=== PATIENT | female | born 1940 | race Caucasian/White ===

== ENCOUNTER 2017-03-06 10:51 | Inpatient (IN) | payer OTHER ==
[~2017-03-06] VITALS: Ht 162.6 cm; Wt 46.5 kg
[~2017-03-06 10:51] MED LIST: PRED50TA PO
[2017-03-06 13:58] VITALS: BP 91/46
[2017-03-06] MEDS ORDERED: acetaminophen 325mg tablet PO PRN ×2 (16:00)
[2017-03-06] MEDS ORDERED: magnesium hydroxide 30ml (MOM) UD suspension PO PRN (16:00)
[2017-03-06] MEDS ORDERED: ondansetron/PF 4mg/2ml inj IV PRN (16:00)
[2017-03-06] MEDS: fluconazole 100mg tablet PO SCH (16:00)
[2017-03-06 16:49] LABS: BASOPHILS % (AUTO) 0.1 % (0-1); EOSINOPHILS # (AUTO) 0.2 X10'3 (0-0.9); EOSINOPHILS % (AUTO) 1.9 % (0-6); LYMPHOCYTES # (AUTO) 0.5 X10'3 (1.1-4.8); LYMPHOCYTES % (AUTO) 4.3 % (21-51); MEAN CORPUSCULAR HEMOGLOBIN 30.3 PG (27.0-31.0); MEAN CORPUSCULAR HGB CONC 34.2 % (33.0-36.5); MEAN CORPUSCULAR VOLUME 88.8 FL (78-98); MEAN PLATELET VOLUME 7.3 FL (7.4-10.4); MONOCYTES # (AUTO) 0.3 X10'3 (0-0.9); MONOCYTES % (AUTO) 2.4 % (2-12); NEUTROPHILS # (AUTO) 11.6 X10'3 (1.8-7.7); NEUTROPHILS % (AUTO) 91.3 % (42-75); PLATELET COUNT 229 X10'3 (140-440); RED CELL DISTRIBUTION WIDTH 15.1 % (11.5-14.5); WHITE BLOOD COUNT 12.7 X10'3 (4.5-11.0)
[2017-03-06 16:57] LABS: HEMATOCRIT 16.9 % (35.0-45.0); HEMOGLOBIN 5.8 g/dl (12.0-16.0)
[2017-03-06 17:00] LABS: INR 1.1 INR; PARTIAL THROMBOPLASTIN TIME 27 SECONDS (22-32)
[2017-03-06] MEDS ORDERED: PANT-47 PO (17:07)
[2017-03-06] MEDS ORDERED: PIPE3.374 IV (17:07)
[2017-03-06] MEDS ORDERED: [UNRECOGNIZED DRUG - CODE] (17:07)
[2017-03-06] MEDS ORDERED: FLUC100T PO (17:09)
[2017-03-06] MEDS ORDERED: VANC1VIA21 IV (17:09)
[2017-03-06 17:11] LABS: ALANINE AMINOTRANSFERASE 16 U/L (12-78); ALBUMIN 1.2 G/DL (3.4-5.0); ALBUMIN/GLOBULIN RATIO 0.3 (1.1-1.5); ALKALINE PHOSPHATASE 124 IU/L (46-116); ANION GAP 5 (8-16); ASPARTATE AMINO TRANSFERASE 20 U/L (10-37); BILIRUBIN,TOTAL 0.3 MG/DL (0.1-1.0); BLOOD UREA NITROGEN 46 MG/DL (7-18); BUN/CREATININE RATIO 18.6 (6.6-38.0); CALCIUM 7.8 MG/DL (8.5-10.1); CHLORIDE 101 MMOL/L (99-107); CREATININE 2.47 MG/DL (0.40-0.90); GLUCOSE 75 MG/DL (70-104); MAGNESIUM 1.4 MG/DL (1.5-2.4); PHOSPHORUS 3.2 MG/DL (2.3-4.5); POTASSIUM 4.9 MMOL/L (3.5-5.1); SODIUM 135 MMOL/L (135-145); TOTAL CARBON DIOXIDE 28.7 MMOL/L (24-32); eGFR 19 ML/MIN
[2017-03-06 17:25] LABS: TOTAL CELLS COUNTED 100; TOXIC VACUOLATION 1+
[2017-03-06 17:26] LABS: ANISOCYTOSIS FEW; PLATELET ESTIMATE NORMAL; POLYCHROMASIA 1+; TOXIC GRANULATION 3+
[2017-03-06 19:00] VITALS: BP 102/54
[2017-03-06] MEDS: pantoprazole 40mg Tablet.DR PO SCH (20:00)
[2017-03-06 23:32] VITALS: BP 75/53
[2017-03-06 23:47] VITALS: BP 76/43
[2017-03-07] VITALS (24 sets, daily range): BP systolic 82–120; BP diastolic 40–64
[2017-03-07] MEDS: pantoprazole 40mg Tablet.DR PO SCH ×2 (02:22→22:43)
[2017-03-07] MEDS ORDERED: pantoprazole 40mg Tablet.DR PO SCH (07:30)
[2017-03-07] MEDS: fluconazole 100mg tablet PO SCH ×2 (08:00→14:43)
[2017-03-07 09:58] LABS: BASOPHILS % (AUTO) 0.3 % (0-1); EOSINOPHILS % (AUTO) 0.2 % (0-6); HEMOGLOBIN 9.6 g/dl (12.0-16.0); LYMPHOCYTES # (AUTO) 0.4 X10'3 (1.1-4.8); LYMPHOCYTES % (AUTO) 2.6 % (21-51); MEAN CORPUSCULAR HGB CONC 34.3 % (33.0-36.5); MEAN CORPUSCULAR VOLUME 87.5 FL (78-98); MEAN PLATELET VOLUME 7.4 FL (7.4-10.4); MONOCYTES # (AUTO) 0.3 X10'3 (0-0.9); MONOCYTES % (AUTO) 2.2 % (2-12); NEUTROPHILS # (AUTO) 13.4 X10'3 (1.8-7.7); NEUTROPHILS % (AUTO) 94.7 % (42-75); PLATELET COUNT 208 X10'3 (140-440); RED CELL DISTRIBUTION WIDTH 13.6 % (11.5-14.5); WHITE BLOOD COUNT 14.1 X10'3 (4.5-11.0)
[2017-03-07 10:03] LABS: INR 1.1 INR; PARTIAL THROMBOPLASTIN TIME 29 SECONDS (22-32); PROTHROMBIN TIME 11.1 SECONDS (9.0-12.0)
[2017-03-07 10:23] LABS: ALANINE AMINOTRANSFERASE 19 U/L (12-78); ALBUMIN 1.3 G/DL (3.4-5.0); ALBUMIN/GLOBULIN RATIO 0.3 (1.1-1.5); ALKALINE PHOSPHATASE 132 IU/L (46-116); ANION GAP 5 (8-16); ASPARTATE AMINO TRANSFERASE 23 U/L (10-37); BILIRUBIN,TOTAL 0.7 MG/DL (0.1-1.0); BLOOD UREA NITROGEN 35 MG/DL (7-18); BUN/CREATININE RATIO 15.3 (6.6-38.0); CHLORIDE 100 MMOL/L (99-107); CREATININE 2.29 MG/DL (0.40-0.90); GLUCOSE 135 MG/DL (70-104); MAGNESIUM 1.3 MG/DL (1.5-2.4); PHOSPHORUS 3.5 MG/DL (2.3-4.5); POTASSIUM 4.3 MMOL/L (3.5-5.1); SODIUM 134 MMOL/L (135-145); TOTAL PROTEIN 5.4 G/DL (6.4-8.2); eGFR 21 ML/MIN
[2017-03-07] MEDS ORDERED: LIDOcaine 1% 30ml vial 0 ML ONE (10:35)
[2017-03-07] MEDS ORDERED: heparin sodium, porcine/PF 100unit/ml 5ML syringe ONE (10:35)
[2017-03-07] MEDS ORDERED: povidone-iodine 10% topical ointment 28.4gm TP ONE (10:35)
[2017-03-07] MEDS ORDERED: ringers solution, lacted 1,000 ML IV SCH (10:40)
[2017-03-07] MEDS ORDERED: ondansetron/PF 4mg/2ml inj IV PRN (10:40)
[2017-03-07] MEDS ORDERED: fentaNYL/PF 50MCG/1 ML 2ML syringe ONE ×2 (10:58→11:16)
[2017-03-07] MEDS ORDERED: midazolam 2 mg/2 ml injection ONE (10:58)
[2017-03-07] MEDS ORDERED: ketamine 10mg/ml 20ml inj ONE (10:58)
[2017-03-07] MEDS ORDERED: ePHEDrine 50MG/ML INJ. ONE (11:33)
[2017-03-07] MEDS ORDERED: ePHEDrine 50MG/ML INJ. IV ONE (11:35)
[2017-03-07] MEDS ORDERED: propofol inj 20 ML IV ONE (11:49)
[2017-03-07] MEDS ORDERED: LIDOcaine 1%/PF (10mg/ml) 5ml vial ONE (11:49)
[2017-03-07 12:27] LABS: PLATELET ESTIMATE NORMAL; TOTAL CELLS COUNTED 100
[2017-03-07 12:28] LABS: POLYCHROMASIA FEW; TOXIC GRANULATION 3+; TOXIC VACUOLATION 1+
[2017-03-07 12:29] LABS: ANISOCYTOSIS FEW
[2017-03-07] MEDS ORDERED: magnesium 2GM in 50ml NS 50 ML IV PRN (13:40)
[2017-03-07] MEDS ORDERED: magnesium Cl slow-release 64mg tablet PO PRN (13:40)
[2017-03-07] MEDS ORDERED: magnesium 4gm in 100ml NS 100 ML IV PRN (13:40)
[2017-03-08] VITALS (15 sets, daily range): BP systolic 96–137; BP diastolic 55–70
[2017-03-08 06:09] LABS: PARTIAL THROMBOPLASTIN TIME 28 SECONDS (22-32); PROTHROMBIN TIME 10.7 SECONDS (9.0-12.0)
[2017-03-08 06:10] LABS: BASOPHILS % (AUTO) 0.1 % (0-1); EOSINOPHILS # (AUTO) 0.1 X10'3 (0-0.9); EOSINOPHILS % (AUTO) 1.3 % (0-6); HEMATOCRIT 29.2 % (35.0-45.0); HEMOGLOBIN 9.7 g/dl (12.0-16.0); LYMPHOCYTES # (AUTO) 0.3 X10'3 (1.1-4.8); LYMPHOCYTES % (AUTO) 3.4 % (21-51); MEAN CORPUSCULAR HEMOGLOBIN 29.4 PG (27.0-31.0); MEAN CORPUSCULAR HGB CONC 33.3 % (33.0-36.5); MEAN CORPUSCULAR VOLUME 88.2 FL (78-98); MEAN PLATELET VOLUME 7.3 FL (7.4-10.4); MONOCYTES # (AUTO) 0.2 X10'3 (0-0.9); MONOCYTES % (AUTO) 2.1 % (2-12); NEUTROPHILS # (AUTO) 9.1 X10'3 (1.8-7.7); NEUTROPHILS % (AUTO) 93.1 % (42-75); PLATELET COUNT 225 X10'3 (140-440); RED BLOOD COUNT 3.31 X10'6 (4.20-5.60); WHITE BLOOD COUNT 9.8 X10'3 (4.5-11.0)
[2017-03-08 07:02] LABS: ALANINE AMINOTRANSFERASE 16 U/L (12-78); ALBUMIN 1.2 G/DL (3.4-5.0); ALBUMIN/GLOBULIN RATIO 0.3 (1.1-1.5); ALKALINE PHOSPHATASE 137 IU/L (46-116); ANION GAP 8 (8-16); ASPARTATE AMINO TRANSFERASE 5 U/L (10-37); BILIRUBIN,TOTAL 0.4 MG/DL (0.1-1.0); BLOOD UREA NITROGEN 36 MG/DL (7-18); BUN/CREATININE RATIO 14.8 (6.6-38.0); CALCIUM 8.5 MG/DL (8.5-10.1); CHLORIDE 98 MMOL/L (99-107); CREATININE 2.43 MG/DL (0.40-0.90); GLUCOSE 208 MG/DL (70-104); MAGNESIUM 3.2 MG/DL (1.5-2.4); PHOSPHORUS 3.8 MG/DL (2.3-4.5); POTASSIUM 4.7 MMOL/L (3.5-5.1); SODIUM 134 MMOL/L (135-145); TOTAL CARBON DIOXIDE 28.4 MMOL/L (24-32); TOTAL PROTEIN 5.1 G/DL (6.4-8.2); eGFR 19 ML/MIN
[2017-03-08] MEDS: pantoprazole 40mg Tablet.DR PO SCH (07:41)
[2017-03-08] MEDS: fluconazole 100mg tablet PO SCH (07:42)
[2017-03-08] MEDS ORDERED: midazolam 2 mg/2 ml injection IV PRN (08:15)
[2017-03-08] MEDS ORDERED: heparin 1,000 units/ml 10ml inj ICATH ONE (08:15)
[2017-03-08] MEDS ORDERED: LIDOcaine 1%/PF (10mg/ml) 5ml vial SQ ONE (08:15)
[2017-03-08] MEDS ORDERED: fentaNYL/PF 50MCG/1 ML 2ML syringe IV PRN (08:15)
[2017-03-08] MEDS ORDERED: heparin 1,000unit/ml 10ml vial 10 ML ONE (08:26)
[2017-03-08] MEDS ORDERED: midazolam 2 mg/2 ml injection ONE (08:27)
[2017-03-08] MEDS ORDERED: LIDOcaine 1%/PF (10mg/ml) 5ml vial ONE (08:27)
[2017-03-08] MEDS ORDERED: fentaNYL/PF 50MCG/1 ML 2ML syringe ONE (08:28)
[2017-03-08] MEDS ORDERED: normal saline 1000ml 100 ML IV PRN (09:47)
[2017-03-08] MEDS ORDERED: albumin (human) 25% 100ml IV 100 ML IV PRN (09:50)
[2017-03-08 09:52] LABS: OCCULT BLOOD STOOL NEGATIVE (Neg)
[2017-03-08] MEDS ORDERED: heparin 1,000 units/ml 10ml inj HE ONE ×2 (09:55)
[2017-03-08] MEDS ORDERED: FLUC100T9 PO (15:39)
== END 2017-03-08 16:40 | disposition home or self-care (01) | DRG 919 ==
LOC: MED 3N 14:02
PROVIDERS: ADMIT Internal Medicine Critical Care Medicine; ATTEND Internal Medicine Critical Care Medicine
PROC: 3E1M39Z Irrigation of Peritoneal Cavity using Dialysate, Percutaneous Approach (ICD-10-PCS; 2017-03-06)
PROC: 30233N1 Transfusion of Nonautologous Red Blood Cells into Peripheral Vein, Percutaneous Approach (ICD-10-PCS; 2017-03-07)
PROC: 3E1M39Z Irrigation of Peritoneal Cavity using Dialysate, Percutaneous Approach (ICD-10-PCS; 2017-03-07)
PROC: 0WPGX3Z Removal of Infusion Device from Peritoneal Cavity, External Approach (ICD-10-PCS; principal; 2017-03-07 10:53)
PROC: 5A1D70Z Performance of Urinary Filtration, Intermittent, Less than 6 Hours Per Day (ICD-10-PCS; 2017-03-08)
PROC: 0JH63XZ Insertion of Tunneled Vascular Access Device into Chest Subcutaneous Tissue and Fascia, Percutaneous Approach (ICD-10-PCS; 2017-03-08)
PROC: 02HV33Z Insertion of Infusion Device into Superior Vena Cava, Percutaneous Approach (ICD-10-PCS; 2017-03-08)
PROC: B548ZZA Ultrasonography of Superior Vena Cava, Guidance (ICD-10-PCS; 2017-03-08)
DX: T85.71XA Infection and inflammatory reaction due to peritoneal dialysis catheter, initial encounter (principal); K65.8 Other peritonitis; B37.89 Other sites of candidiasis; E46 Unspecified protein-calorie malnutrition; N18.6 End stage renal disease; D63.8 Anemia in other chronic diseases classified elsewhere; Z68.1 Body mass index [BMI] 19.9 or less, adult; Y82.8 Other medical devices associated with adverse incidents; Z99.2 Dependence on renal dialysis; Y92.89 Other specified places as the place of occurrence of the external cause
CPT/HCPCS: 36415; 36558; 71045; 76937; 77001; 80053; 82272; 83605; 83735; 83880; 84100; 84145; 84443; 85025; 85610; 85730; 86885; 86900; 86901; 86920; 87040; 87070; 93005; 99152; 99153; A4353; A4620; A6212; A6213; C1750; C1894; G0257; J1642; J1644; J2001; J2250; J2405; J2704; J3010; J3475; J3490; J7030; J7120; P9016

== ENCOUNTER 2017-05-10 10:57 | Emergency (ER) | payer OTHER ==
[~2017-05-10] VITALS: Ht 157.5 cm; Wt 44.1 kg
[~2017-05-10 10:57] MED LIST changes: +FLUC100T PO; +FLUC100T9 PO; +PANT-47 PO; -PRED50TA PO; +[UNRECOGNIZED DRUG - CODE]
[2017-05-10 11:42] LABS: BASOPHILS % (AUTO) 0 % (0-1); EOSINOPHILS # (AUTO) 0.1 X10'3 (0-0.9); EOSINOPHILS % (AUTO) 0.8 % (0-6); HEMATOCRIT 36.5 % (35.0-45.0); HEMOGLOBIN 12.1 g/dl (12.0-16.0); LYMPHOCYTES # (AUTO) 0.5 X10'3 (1.1-4.8); LYMPHOCYTES % (AUTO) 4.9 % (21-51); MEAN CORPUSCULAR HEMOGLOBIN 29.3 PG (27.0-31.0); MEAN CORPUSCULAR HGB CONC 33.2 % (33.0-36.5); MEAN CORPUSCULAR VOLUME 88.3 FL (78-98); MEAN PLATELET VOLUME 8.2 FL (7.4-10.4); MONOCYTES # (AUTO) 0.6 X10'3 (0-0.9); MONOCYTES % (AUTO) 5.9 % (2-12); NEUTROPHILS # (AUTO) 9.6 X10'3 (1.8-7.7); NEUTROPHILS % (AUTO) 88.4 % (42-75); PLATELET COUNT 167 X10'3 (140-440); RED BLOOD COUNT 4.13 X10'6 (4.20-5.60); RED CELL DISTRIBUTION WIDTH 15.2 % (11.5-14.5); WHITE BLOOD COUNT 10.8 X10'3 (4.5-11.0)
[2017-05-10 11:52] LABS: PARTIAL THROMBOPLASTIN TIME 25 SECONDS (22-32); PROTHROMBIN TIME 10.1 SECONDS (9.0-12.0)
[2017-05-10 11:57] LABS: ALANINE AMINOTRANSFERASE 29 U/L (12-78); ALBUMIN 2.6 G/DL (3.4-5.0); ALBUMIN/GLOBULIN RATIO 0.6 (1.1-1.5); ALKALINE PHOSPHATASE 146 IU/L (46-116); ANION GAP 7 (8-16); ASPARTATE AMINO TRANSFERASE 20 U/L (10-37); BILIRUBIN,TOTAL 0.2 MG/DL (0.1-1.0); BLOOD UREA NITROGEN 17 MG/DL (7-18); CALCIUM 8.3 MG/DL (8.5-10.1); CHLORIDE 99 MMOL/L (99-107); CREATININE 1.55 MG/DL (0.40-0.90); GLUCOSE 267 MG/DL (70-104); POTASSIUM 4.8 MMOL/L (3.5-5.1); SODIUM 136 MMOL/L (135-145); TOTAL CARBON DIOXIDE 30.3 MMOL/L (24-32); TOTAL PROTEIN 7.3 G/DL (6.4-8.2); eGFR 33 ML/MIN
[2017-05-10 13:51] LABS: CLARITY,URINE CLEAR (Clear); COLOR,URINE YELLOW (Yellow); GLUCOSE, URINE >=1000 mg/dl (Neg); KETONES,URINE TRACE mg/dl (Neg); LEUKOCYTE ESTERASE ,URINE NEGATIVE (Neg); NITRITES, URINE NEGATIVE (Neg); OCCULT BLOOD,URINE TRACE-LYSED (Neg); PROTEIN,URINE >=300 mg/dl (Neg); UROBILINOGEN,URINE 0.2 E.U/dL (0.2-1.0)
[2017-05-10 13:53] LABS: UA COLLECTION TYPE STRAIGHT CATH
[2017-05-10 13:57] LABS: SQUAMOUS EPITHELIAL CELL,UR FEW /LPF (FEW)
[2017-05-10 13:58] LABS: BACTERIA,URINE 1+ /HPF (Neg); HYALINE CASTS 0-3 /LPF (NEGATIVE); MUCUS STRANDS FEW /LPF (Neg); WBC,URINE 0-4 /HPF (0-4)
[2017-05-10] MEDS ORDERED: PRED20TA PO (14:07)
[2017-05-10 14:30] VITALS: BP 119/51
== END 2017-05-10 14:32 | disposition home or self-care (01) ==
LOC: ER 10:57
DX: J44.1 Chronic obstructive pulmonary disease with (acute) exacerbation (principal); E11.22 Type 2 diabetes mellitus with diabetic chronic kidney disease; N18.6 End stage renal disease; Z99.2 Dependence on renal dialysis; Z98.890 Other specified postprocedural states; Z79.899 Other long term (current) drug therapy
CPT/HCPCS: 36415; 71045; 80053; 81001; 83605; 84484; 85025; 85610; 85730; 87040; 93005; 99285

== ENCOUNTER 2017-06-25 18:00 | Inpatient (IN) | payer MEDICARE, OTHER ==
[~2017-06-25] VITALS: Ht 162.6 cm; Wt 45.5 kg
[~2017-06-25 18:00] MED LIST changes: +AMLO5TAB16 PO; +DILT120C88 PO; -FLUC100T PO; -FLUC100T9 PO; +HYDR-569 PO; +INSU100V9 SQ; +LISI40TA4 PO; +LORA0.5T PO; +METO10TA3 PO; +ONDA4TAB11 PO; +PRAV40TA3 PO; -[UNRECOGNIZED DRUG - CODE]
[2017-06-25 23:00] VITALS: BP 127/52
[2017-06-25] MEDS ORDERED: PRED20TA PO (23:13)
[2017-06-25] MEDS ORDERED: magnesium hydroxide 30ml (MOM) UD suspension PO PRN (23:25)
[2017-06-25] MEDS ORDERED: ondansetron/PF 4mg/2ml inj IV PRN (23:25)
[2017-06-25] MEDS ORDERED: acetaminophen 325mg tablet PO PRN ×2 (23:25)
[2017-06-25] MEDS ORDERED: mag hydrox/Alum hydrox/simeth 30ml oral suspension PO PRN (23:25)
[2017-06-25] MEDS ORDERED: MESSAGE TO PHARMACY PO ONE (23:30)
[2017-06-25] MEDS ORDERED: dextrose ORAL solution 15 GM/59 ML bottle PO PRN ×2 (23:30)
[2017-06-25] MEDS ORDERED: dextrose 50%-water 50ml dispensing syringe IV PRN ×2 (23:30)
[2017-06-25] MEDS ORDERED: glucagon, human recombinant 1mg kit SUBCUT PRN (23:30)
[2017-06-26] VITALS (7 sets, daily range): BP systolic 123–148; BP diastolic 52–73
[2017-06-26] MEDS ORDERED: HYDROcodone/acetaminophen 10/325mg tab PO PRN (03:30)
[2017-06-26 05:08] LABS: BASOPHILS % (AUTO) 0.1 % (0-1); EOSINOPHILS % (AUTO) 0 % (0-6); HEMOGLOBIN 12.8 g/dl (12.0-16.0); LYMPHOCYTES # (AUTO) 0.3 X10'3 (1.1-4.8); LYMPHOCYTES % (AUTO) 6.1 % (21-51); MEAN CORPUSCULAR HGB CONC 32.9 % (33.0-36.5); MEAN CORPUSCULAR VOLUME 94.3 FL (78-98); MEAN PLATELET VOLUME 9.6 FL (7.4-10.4); MONOCYTES % (AUTO) 0.8 % (2-12); NEUTROPHILS # (AUTO) 4.2 X10'3 (1.8-7.7); PLATELET COUNT 121 X10'3 (140-440); RED BLOOD COUNT 4.13 X10'6 (4.20-5.60); RED CELL DISTRIBUTION WIDTH 19.4 % (11.5-14.5); WHITE BLOOD COUNT 4.5 X10'3 (4.5-11.0)
[2017-06-26 05:17] LABS: ALBUMIN 2.3 G/DL (3.4-5.0); ANION GAP 5 (8-16); BLOOD UREA NITROGEN 55 MG/DL (7-18); BUN/CREATININE RATIO 16.8 (6.6-38.0); CALCIUM 7.9 MG/DL (8.5-10.1); CHLORIDE 96 MMOL/L (99-107); CREATININE 3.28 MG/DL (0.40-0.90); GLUCOSE 322 MG/DL (70-104); POTASSIUM 5.4 MMOL/L (3.5-5.1); SODIUM 133 MMOL/L (135-145); TOTAL CARBON DIOXIDE 31.8 MMOL/L (24-32); eGFR 14 ML/MIN
[2017-06-26 05:30] LABS: GIANT PLATELET FEW; LARGE PLATELETS FEW; PLATELET ESTIMATE DECREASED
[2017-06-26] MEDS: CefTRIAXone 2gm/D5W 50ml 50 ML IV SCH (07:28)
[2017-06-26] MEDS: predniSONE 20 mg tablet PO SCH (07:44)
[2017-06-26] MEDS: azithromycin/NS 500mg/250ml 250 ML IV SCH (08:09)
[2017-06-26] MEDS: insulin Lispro (HumaLOG) vial - multi-dose SQ SCH ×2 (08:15→13:55)
[2017-06-26] MEDS ORDERED: albumin (human) 25% 100ml IV 100 ML IV PRN (08:45)
[2017-06-26] MEDS ORDERED: heparin 1,000 units/ml 10ml inj IV ONE (08:45)
[2017-06-26] MEDS ORDERED: heparin 1,000unit/ml 10ml vial 10 ML IV ONE (08:45)
[2017-06-26] MEDS ORDERED: heparin 1,000 units/ml 10ml inj HE ONE ×2 (08:50)
[2017-06-26 09:32] LABS: HEMOGLOBIN A1C 6.8 % (4.5-6.2)
[2017-06-26] MEDS ORDERED: LORazepam 1 MG tablet PO PRN (11:40)
[2017-06-26] MEDS: diltiazem CD 120mg capsule (once-daily) PO SCH (20:20)
[2017-06-26] MEDS: lisinopril 20mg tablet PO SCH (20:20)
[2017-06-26] MEDS: insulin glargine (Lantus) pen - multi-dose SQ SCH (20:30)
[2017-06-27] MEDS: HYDROcodone/acetaminophen 5mg/325mg tablet PO PRN ×2 (00:39→20:15)
[2017-06-27 03:00] VITALS: BP 152/69
[2017-06-27 05:48] LABS: BASOPHILS # (AUTO) 0.1 X10'3 (0-0.2); BASOPHILS % (AUTO) 0.6 % (0-1); EOSINOPHILS % (AUTO) 0.3 % (0-6); HEMATOCRIT 41.7 % (35.0-45.0); HEMOGLOBIN 13.3 g/dl (12.0-16.0); LYMPHOCYTES % (AUTO) 11.3 % (21-51); MEAN CORPUSCULAR HEMOGLOBIN 30.9 PG (27.0-31.0); MEAN CORPUSCULAR VOLUME 96.5 FL (78-98); MEAN PLATELET VOLUME 9.7 FL (7.4-10.4); MONOCYTES # (AUTO) 0.8 X10'3 (0-0.9); MONOCYTES % (AUTO) 8.5 % (2-12); NEUTROPHILS % (AUTO) 79.3 % (42-75); RED BLOOD COUNT 4.32 X10'6 (4.20-5.60); RED CELL DISTRIBUTION WIDTH 19.9 % (11.5-14.5); WHITE BLOOD COUNT 8.9 X10'3 (4.5-11.0)
[2017-06-27 06:05] LABS: ALBUMIN 2.4 G/DL (3.4-5.0); ANION GAP 6 (8-16); BLOOD UREA NITROGEN 39 MG/DL (7-18); BUN/CREATININE RATIO 16.2 (6.6-38.0); CHLORIDE 96 MMOL/L (99-107); CREATININE 2.41 MG/DL (0.40-0.90); GLUCOSE 146 MG/DL (70-104); POTASSIUM 4.8 MMOL/L (3.5-5.1); SODIUM 133 MMOL/L (135-145); TOTAL CARBON DIOXIDE 31.4 MMOL/L (24-32); eGFR 20 ML/MIN
[2017-06-27 06:08] LABS: PLATELET COUNT 139 X10'3 (140-440)
[2017-06-27 06:30] VITALS: BP 134/60
[2017-06-27] MEDS: CefTRIAXone 2gm/D5W 50ml 50 ML IV SCH (07:44)
[2017-06-27] MEDS: predniSONE 20 mg tablet PO SCH (07:45)
[2017-06-27] MEDS: insulin Lispro (HumaLOG) vial - multi-dose SQ SCH ×2 (07:47→13:41)
[2017-06-27] MEDS: azithromycin/NS 500mg/250ml 250 ML IV SCH (08:58)
[2017-06-27 11:00] VITALS: BP 127/55
[2017-06-27] MEDS ORDERED: vancomycin/NS 1 GM ADD-VANTAGE 250 ML IV ONE (11:45)
[2017-06-27 15:00] VITALS: BP 130/50
[2017-06-27] MEDS: ipratropium/albuterol 3ml nebule NEB SCH ×3 (15:39→23:00)
[2017-06-27 19:00] VITALS: BP 120/57
[2017-06-27] MEDS: lisinopril 20mg tablet PO SCH (20:15)
[2017-06-27] MEDS: diltiazem CD 120mg capsule (once-daily) PO SCH (20:15)
[2017-06-27] MEDS: lactobacillus rhamnosus 10,000 MMU CELLS/CAPSULE PO SCH (20:15)
[2017-06-27] MEDS: heparin, porcine 5000 units/ml vial SQ SCH (20:16)
[2017-06-27] MEDS: insulin glargine (Lantus) pen - multi-dose SQ SCH (21:45)
[2017-06-27 23:00] VITALS: BP 120/60
[2017-06-28] VITALS (8 sets, daily range): BP systolic 114–149; BP diastolic 43–66
[2017-06-28] MEDS: ipratropium/albuterol 3ml nebule NEB SCH ×6 (03:00→23:00)
[2017-06-28 05:37] LABS: ALBUMIN 2.2 G/DL (3.4-5.0); ANION GAP 10 (8-16); BLOOD UREA NITROGEN 53 MG/DL (7-18); BUN/CREATININE RATIO 19.9 (6.6-38.0); CALCIUM 7.5 MG/DL (8.5-10.1); CHLORIDE 93 MMOL/L (99-107); CREATININE 2.67 MG/DL (0.40-0.90); GLUCOSE 189 MG/DL (70-104); POTASSIUM 4.5 MMOL/L (3.5-5.1); SODIUM 133 MMOL/L (135-145); TOTAL CARBON DIOXIDE 29.6 MMOL/L (24-32); eGFR 17 ML/MIN
[2017-06-28 05:42] LABS: BASOPHILS % (AUTO) 0.4 % (0-1); EOSINOPHILS # (AUTO) 0.1 X10'3 (0-0.9); EOSINOPHILS % (AUTO) 1.4 % (0-6); HEMATOCRIT 39.8 % (35.0-45.0); HEMOGLOBIN 13.1 g/dl (12.0-16.0); LYMPHOCYTES # (AUTO) 0.9 X10'3 (1.1-4.8); LYMPHOCYTES % (AUTO) 11.2 % (21-51); MEAN CORPUSCULAR HEMOGLOBIN 30.9 PG (27.0-31.0); MEAN CORPUSCULAR HGB CONC 32.8 % (33.0-36.5); MEAN CORPUSCULAR VOLUME 94.2 FL (78-98); MEAN PLATELET VOLUME 9.4 FL (7.4-10.4); MONOCYTES # (AUTO) 0.6 X10'3 (0-0.9); MONOCYTES % (AUTO) 7.2 % (2-12); NEUTROPHILS # (AUTO) 6.4 X10'3 (1.8-7.7); NEUTROPHILS % (AUTO) 79.8 % (42-75); PLATELET COUNT 120 X10'3 (140-440); RED BLOOD COUNT 4.22 X10'6 (4.20-5.60); RED CELL DISTRIBUTION WIDTH 19.6 % (11.5-14.5)
[2017-06-28] MEDS ORDERED: vancomycin/NS 1 GM ADD-VANTAGE 250 ML IV PRN (08:00)
[2017-06-28] MEDS ORDERED: heparin 1,000 units/ml 10ml inj HE ONE ×2 (08:00)
[2017-06-28] MEDS ORDERED: heparin 1,000unit/ml 10ml vial 10 ML IV ONE (08:00)
[2017-06-28] MEDS ORDERED: albumin (human) 25% 100ml IV 100 ML IV PRN (08:00)
[2017-06-28] MEDS ORDERED: heparin 1,000 units/ml 10ml inj IV ONE (08:00)
[2017-06-28] MEDS: heparin, porcine 5000 units/ml vial SQ SCH ×2 (08:00→19:17)
[2017-06-28] MEDS: insulin Lispro (HumaLOG) vial - multi-dose SQ SCH ×3 (08:17→19:23)
[2017-06-28] MEDS: CefTRIAXone/D5W-Rocephin 1gm 50 ML IV SCH (08:18)
[2017-06-28] MEDS: predniSONE 20 mg tablet PO SCH (08:18)
[2017-06-28] MEDS: lactobacillus rhamnosus 10,000 MMU CELLS/CAPSULE PO SCH ×2 (08:18→19:17)
[2017-06-28] MEDS: LORazepam 1 MG tablet PO PRN (09:23)
[2017-06-28] MEDS: HYDROcodone/acetaminophen 5mg/325mg tablet PO PRN (09:53)
[2017-06-28] MEDS ORDERED: tPA-cathflo 2 MG/2 ml IV flush IVF ONE ×2 (13:05)
[2017-06-28 15:39] LABS: GLUCOSE,BODY FLUID 167 MG/DL; LDH,BODY FLUID 63 U/L
[2017-06-28 15:48] LABS: TOTAL PROTEIN,BODY FLUID < 2.0 G/DL
[2017-06-28 16:39] LABS: BF RBC COUNT 118 /CU MM; BF WBC COUNT 538 /CU MM (0-1000); BFAPPEAR CLOUDY; BFCOLOR STRAW; BFVOLUME 55 ML; LYMPHOCYTES,BODY FLUID 61 %; MONOCYTES,BODY FLUID 31 %; NEUTROPHILS,BODY FLUID 8 %
[2017-06-28 16:40] LABS: BF MESOTHELIAL CELLS FEW
[2017-06-28] MEDS: lisinopril 20mg tablet PO SCH (20:39)
[2017-06-28] MEDS: diltiazem CD 120mg capsule (once-daily) PO SCH (20:39)
[2017-06-28] MEDS: insulin glargine (Lantus) pen - multi-dose SQ SCH (20:54)
[2017-06-29 03:00] VITALS: BP 119/49
[2017-06-29] MEDS: ipratropium/albuterol 3ml nebule NEB SCH ×5 (03:00→16:53)
[2017-06-29 03:36] LABS: BASOPHILS % (AUTO) 0.3 % (0-1); EOSINOPHILS # (AUTO) 0.1 X10'3 (0-0.9); EOSINOPHILS % (AUTO) 1.5 % (0-6); HEMOGLOBIN 13.7 g/dl (12.0-16.0); LYMPHOCYTES # (AUTO) 0.9 X10'3 (1.1-4.8); LYMPHOCYTES % (AUTO) 12.8 % (21-51); MEAN CORPUSCULAR HEMOGLOBIN 31.1 PG (27.0-31.0); MEAN CORPUSCULAR HGB CONC 32.6 % (33.0-36.5); MEAN CORPUSCULAR VOLUME 95.3 FL (78-98); MEAN PLATELET VOLUME 9.5 FL (7.4-10.4); MONOCYTES # (AUTO) 0.6 X10'3 (0-0.9); MONOCYTES % (AUTO) 8.2 % (2-12); NEUTROPHILS # (AUTO) 5.7 X10'3 (1.8-7.7); NEUTROPHILS % (AUTO) 77.2 % (42-75); PLATELET COUNT 107 X10'3 (140-440); RED BLOOD COUNT 4.41 X10'6 (4.20-5.60); RED CELL DISTRIBUTION WIDTH 19.7 % (11.5-14.5); WHITE BLOOD COUNT 7.4 X10'3 (4.5-11.0)
[2017-06-29 03:51] LABS: ALANINE AMINOTRANSFERASE 25 U/L (12-78); ALBUMIN 2.1 G/DL (3.4-5.0); ALBUMIN/GLOBULIN RATIO 0.7 (1.1-1.5); ALKALINE PHOSPHATASE 83 IU/L (46-116); ANION GAP 4 (8-16); ASPARTATE AMINO TRANSFERASE 16 U/L (10-37); BILIRUBIN,TOTAL 0.3 MG/DL (0.1-1.0); BLOOD UREA NITROGEN 41 MG/DL (7-18); BUN/CREATININE RATIO 18.6 (6.6-38.0); CALCIUM 7.5 MG/DL (8.5-10.1); CHLORIDE 102 MMOL/L (99-107); GLUCOSE 95 MG/DL (70-104); MAGNESIUM 1.8 MG/DL (1.5-2.4); POTASSIUM 4.1 MMOL/L (3.5-5.1); SODIUM 138 MMOL/L (135-145); TOTAL CARBON DIOXIDE 31.9 MMOL/L (24-32); eGFR 22 ML/MIN
[2017-06-29 06:55] VITALS: BP 144/57
[2017-06-29] MEDS: heparin, porcine 5000 units/ml vial SQ SCH (08:00)
[2017-06-29] MEDS: lactobacillus rhamnosus 10,000 MMU CELLS/CAPSULE PO SCH (08:28)
[2017-06-29] MEDS: CefTRIAXone/D5W-Rocephin 1gm 50 ML IV SCH (08:28)
[2017-06-29] MEDS: predniSONE 20 mg tablet PO SCH (08:28)
[2017-06-29] MEDS: insulin Lispro (HumaLOG) vial - multi-dose SQ SCH (08:31)
[2017-06-29] MEDS ORDERED: heparin 1,000unit/ml 10ml vial 10 ML IV ONE (08:38)
[2017-06-29] MEDS ORDERED: normal saline 1000ml 250 ML IV PRN (08:38)
[2017-06-29] MEDS ORDERED: heparin 1,000 units/ml 10ml inj IV ONE (08:40)
[2017-06-29] MEDS ORDERED: albumin (human) 25% 100ml IV 100 ML IV PRN (08:40)
[2017-06-29] MEDS ORDERED: heparin 1,000 units/ml 10ml inj HE ONE ×2 (08:45)
[2017-06-29] MEDS ORDERED: PRED20TA PO (08:51)
[2017-06-29] MEDS ORDERED: PRED5TAB PO (08:51)
[2017-06-29] MEDS: HYDROcodone/acetaminophen 5mg/325mg tablet PO PRN (10:04)
[2017-06-29] MEDS: LORazepam 1 MG tablet PO PRN (10:04)
[2017-06-29 11:00] VITALS: BP 156/69
[2017-06-29 15:00] VITALS: BP 131/65
[2017-06-30 16:38] LABS: HBSAG SCREEN Negative (Negative)
== END 2017-06-29 15:55 | disposition home or self-care (01) | DRG 193 ==
LOC: PCU 3S 21:48
PROVIDERS: ADMIT Family Medicine; ATTEND Family Medicine
PROC: 5A1D70Z Performance of Urinary Filtration, Intermittent, Less than 6 Hours Per Day (ICD-10-PCS; 2017-06-26)
PROC: 0W9B3ZZ Drainage of Left Pleural Cavity, Percutaneous Approach (ICD-10-PCS; principal; 2017-06-28)
PROC: 5A1D70Z Performance of Urinary Filtration, Intermittent, Less than 6 Hours Per Day (ICD-10-PCS; 2017-06-28)
PROC: 5A1D70Z Performance of Urinary Filtration, Intermittent, Less than 6 Hours Per Day (ICD-10-PCS; 2017-06-29)
DX: J18.9 Pneumonia, unspecified organism (principal); N18.6 End stage renal disease; I13.2 Hypertensive heart and chronic kidney disease with heart failure and with stage 5 chronic kidney disease, or end stage renal disease; J90 Pleural effusion, not elsewhere classified; J96.11 Chronic respiratory failure with hypoxia; E11.22 Type 2 diabetes mellitus with diabetic chronic kidney disease; J44.0 Chronic obstructive pulmonary disease with (acute) lower respiratory infection; J44.1 Chronic obstructive pulmonary disease with (acute) exacerbation; I50.9 Heart failure, unspecified; J20.9 Acute bronchitis, unspecified; H91.90 Unspecified hearing loss, unspecified ear; M81.0 Age-related osteoporosis without current pathological fracture; F17.210 Nicotine dependence, cigarettes, uncomplicated; Z66 Do not resuscitate; Z89.611 Acquired absence of right leg above knee; Z99.81 Dependence on supplemental oxygen; Z99.2 Dependence on renal dialysis; Z79.4 Long term (current) use of insulin; Z79.899 Other long term (current) drug therapy; Z71.2 Person consulting for explanation of examination or test findings
CPT/HCPCS: 32555; 36415; 71045; 80048; 80053; 82945; 82948; 83036; 83615; 83735; 84157; 85025; 87070; 87075; 87340; 89051; 94640; 94760; 97162; 97530; A4649; A6212; A6213; A6223; A6258; A6446; A6449; G0257; J0456; J0696; J1644; J1815; J2997; J3370; J7030; J7512

== ENCOUNTER 2017-08-23 07:33 | Inpatient (IN) | payer OTHER ==
[~2017-08-23] VITALS: Ht 162.6 cm; Wt 47.0 kg
[~2017-08-23 07:33] MED LIST changes: -AMLO5TAB16 PO; -METO10TA3 PO; +PRED20TA PO; +PRED5TAB PO
[2017-08-23] MEDS ORDERED: azithromycin/NS 500mg/250ml 250 ML IV ONE (08:05)
[2017-08-23] MEDS ORDERED: methylPREDNISolone sod succ 125mg/2ml vial IV ONE (08:05)
[2017-08-23 08:14] LABS: BASOPHILS % (AUTO) 0.1 % (0-1); EOSINOPHILS # (AUTO) 0.1 X10'3 (0-0.9); EOSINOPHILS % (AUTO) 0.7 % (0-6); HEMATOCRIT 33.7 % (35.0-45.0); HEMOGLOBIN 11.1 g/dl (12.0-16.0); LYMPHOCYTES # (AUTO) 0.4 X10'3 (1.1-4.8); LYMPHOCYTES % (AUTO) 2.3 % (21-51); MEAN CORPUSCULAR HEMOGLOBIN 31.1 PG (27.0-31.0); MEAN CORPUSCULAR HGB CONC 32.9 % (33.0-36.5); MEAN CORPUSCULAR VOLUME 94.4 FL (78-98); MEAN PLATELET VOLUME 9.6 FL (7.4-10.4); MONOCYTES # (AUTO) 0.4 X10'3 (0-0.9); MONOCYTES % (AUTO) 2.2 % (2-12); NEUTROPHILS # (AUTO) 16.7 X10'3 (1.8-7.7); NEUTROPHILS % (AUTO) 94.7 % (42-75); PLATELET COUNT 179 X10'3 (140-440); RED BLOOD COUNT 3.57 X10'6 (4.20-5.60); RED CELL DISTRIBUTION WIDTH 15.2 % (11.5-14.5); WHITE BLOOD COUNT 17.6 X10'3 (4.5-11.0)
[2017-08-23] MEDS: albuterol 2.5 MG/3 ML nebule CONTNEB PRN (08:21)
[2017-08-23 08:49] LABS: ALANINE AMINOTRANSFERASE 18 U/L (12-78); ALBUMIN 2.4 G/DL (3.4-5.0); ALBUMIN/GLOBULIN RATIO 0.6 (1.1-1.5); ALKALINE PHOSPHATASE 95 IU/L (46-116); ANION GAP 8 (8-16); ASPARTATE AMINO TRANSFERASE 20 U/L (10-37); BILIRUBIN,TOTAL 0.4 MG/DL (0.1-1.0); BLOOD UREA NITROGEN 55 MG/DL (7-18); BUN/CREATININE RATIO 17.2 (6.6-38.0); CALCIUM 8.9 MG/DL (8.5-10.1); CHLORIDE 94 MMOL/L (99-107); CREATININE 3.19 MG/DL (0.40-0.90); POTASSIUM 5.7 MMOL/L (3.5-5.1); SODIUM 131 MMOL/L (135-145); TOTAL PROTEIN 6.6 G/DL (6.4-8.2); eGFR 14 ML/MIN
[2017-08-23 08:52] LABS: GLUCOSE 458 MG/DL (70-104)
[2017-08-23 09:55] LABS: PLATELET ESTIMATE NORMAL; TOTAL CELLS COUNTED 100
[2017-08-23 09:59] LABS: POLYCHROMASIA FEW; SCHISTOCYTES FEW
[2017-08-23 10:00] LABS: STOMATOCYTES FEW
[2017-08-23] MEDS ORDERED: insulin regular, human 10 units/0.1 ml syringe SQ ONE (11:30)
[2017-08-23] MEDS ORDERED: AZIT-63 PO (11:33)
[2017-08-23] MEDS ORDERED: aspirin 81mg tab.chew PO ONE (11:45)
[2017-08-23] MEDS ORDERED: acetaminophen 325mg tablet PO PRN (12:05)
[2017-08-23] MEDS ORDERED: ondansetron/PF 4mg/2ml inj IV PRN (12:05)
[2017-08-23] MEDS ORDERED: HYDROcodone/acetaminophen 5mg/325mg tablet PO PRN (12:05)
[2017-08-23] MEDS ORDERED: normal saline 1000ml 250 ML IV PRN (12:08)
[2017-08-23] MEDS ORDERED: heparin 1,000unit/ml 10ml vial 10 ML IV ONE (12:08)
[2017-08-23] MEDS ORDERED: heparin 1,000 units/ml 10ml inj HE ONE ×2 (12:15)
[2017-08-23 14:50] VITALS: BP 132/56
[2017-08-23 15:00] VITALS: BP 113/49
[2017-08-23] MEDS ORDERED: heparin 10,000 units/1 ML INJ IV ONE (15:30)
[2017-08-23] MEDS ORDERED: LORazepam 0.5 MG tablet PO PRN (16:55)
[2017-08-23] MEDS ORDERED: ondansetron 4mg rapidly disintigrating tab PO PRN (16:55)
[2017-08-23 17:26] LABS: INR 1.2 INR; PROTHROMBIN TIME 12.1 SECONDS (9.0-12.0)
[2017-08-23 17:36] LABS: PARTIAL THROMBOPLASTIN TIME > 153 SECONDS (22-32)
[2017-08-23 18:00] VITALS: BP 111/55
[2017-08-23 18:28] LABS: HIV ANTIBODY 1&2 RAPID NON-REACTIVE (Neg)
[2017-08-23] MEDS ORDERED: heparin, porcine 5000 units/ml vial SQ SCH (20:00)
[2017-08-23] MEDS: insulin glargine (Lantus) pen - multi-dose SQ SCH (21:00)
[2017-08-23 22:00] VITALS: BP 138/72
[2017-08-23] MEDS: HYDROcodone/acetaminophen 5mg/325mg tablet PO SCH (22:39)
[2017-08-23] MEDS: diltiazem CD 120mg capsule (once-daily) PO SCH (22:39)
[2017-08-23] MEDS: docusate sod 100mg capsule PO SCH (22:39)
[2017-08-23] MEDS: lisinopril 20mg tablet PO SCH (22:39)
[2017-08-23] MEDS: pantoprazole 40mg Tablet.DR PO SCH (22:39)
[2017-08-23] MEDS: pravastatin 40mg tablet PO SCH (22:44)
[2017-08-24] VITALS (17 sets, daily range): BP systolic 100–129; BP diastolic 43–60
[2017-08-24 06:07] LABS: ALANINE AMINOTRANSFERASE 21 U/L (12-78); ALBUMIN 2.3 G/DL (3.4-5.0); ALBUMIN/GLOBULIN RATIO 0.6 (1.1-1.5); ALKALINE PHOSPHATASE 73 IU/L (46-116); ANION GAP 6 (8-16); ASPARTATE AMINO TRANSFERASE 21 U/L (10-37); BILIRUBIN,TOTAL 0.2 MG/DL (0.1-1.0); BLOOD UREA NITROGEN 22 MG/DL (7-18); CHLORIDE 100 MMOL/L (99-107); CREATININE 1.69 MG/DL (0.40-0.90); GLUCOSE 166 MG/DL (70-104); PHOSPHORUS 3.9 MG/DL (2.3-4.5); POTASSIUM 4.3 MMOL/L (3.5-5.1); SODIUM 137 MMOL/L (135-145); TOTAL CARBON DIOXIDE 31.5 MMOL/L (24-32); TOTAL PROTEIN 6.1 G/DL (6.4-8.2); eGFR 30 ML/MIN
[2017-08-24 06:24] LABS: BASOPHILS % (AUTO) 0 % (0-1); EOSINOPHILS % (AUTO) 0 % (0-6); HEMATOCRIT 29.3 % (35.0-45.0); HEMOGLOBIN 9.7 g/dl (12.0-16.0); LYMPHOCYTES # (AUTO) 0.5 X10'3 (1.1-4.8); LYMPHOCYTES % (AUTO) 4.7 % (21-51); MEAN CORPUSCULAR HEMOGLOBIN 31.3 PG (27.0-31.0); MEAN PLATELET VOLUME 9.6 FL (7.4-10.4); MONOCYTES # (AUTO) 0.5 X10'3 (0-0.9); MONOCYTES % (AUTO) 5.2 % (2-12); NEUTROPHILS # (AUTO) 9.4 X10'3 (1.8-7.7); NEUTROPHILS % (AUTO) 90.1 % (42-75); PLATELET COUNT 138 X10'3 (140-440); RED BLOOD COUNT 3.09 X10'6 (4.20-5.60); RED CELL DISTRIBUTION WIDTH 14.4 % (11.5-14.5); WHITE BLOOD COUNT 10.4 X10'3 (4.5-11.0)
[2017-08-24] MEDS: heparin 10,000 units/1 ML INJ IV PRN ×3 (06:49→20:52)
[2017-08-24] MEDS: pantoprazole 40mg Tablet.DR PO SCH ×2 (07:51→20:27)
[2017-08-24] MEDS: docusate sod 100mg capsule PO SCH ×2 (07:51→20:00)
[2017-08-24] MEDS: HYDROcodone/acetaminophen 5mg/325mg tablet PO SCH ×2 (07:51→20:28)
[2017-08-24] MEDS ORDERED: CAFFEINE CITRATE 60 MG/3 ML injection vial IV ONE ×2 (08:40→10:45)
[2017-08-24] MEDS ORDERED: regadenoson 0.4mg/5ml syringe IV ONE ×2 (08:40→10:46)
[2017-08-24] MEDS ORDERED: albuterol 2.5 MG/3 ML nebule NEB PRN (09:45)
[2017-08-24] MEDS: albuterol 2.5 MG/3 ML nebule CONTNEB PRN (09:51)
[2017-08-24] MEDS ORDERED: dextrose 50%-water 50ml dispensing syringe IV PRN ×2 (13:35)
[2017-08-24] MEDS ORDERED: glucagon, human recombinant 1mg kit SUBCUT PRN (13:35)
[2017-08-24] MEDS ORDERED: insulin Lispro (HumaLOG) vial - multi-dose SQ SCH (13:35)
[2017-08-24] MEDS ORDERED: MESSAGE TO PHARMACY PO ONE (13:35)
[2017-08-24] MEDS ORDERED: dextrose ORAL solution 15 GM/59 ML bottle PO PRN ×2 (13:35)
[2017-08-24] MEDS: diltiazem CD 120mg capsule (once-daily) PO SCH (20:27)
[2017-08-24] MEDS: lisinopril 20mg tablet PO SCH (20:27)
[2017-08-24] MEDS: pravastatin 40mg tablet PO SCH (20:27)
[2017-08-24] MEDS ORDERED: insulin glargine (Lantus) pen - multi-dose SQ SCH (21:00)
[2017-08-24] MEDS: insulin glargine (Lantus) pen - multi-dose SQ SCH (21:51)
[2017-08-25 02:00] VITALS: BP 124/59
[2017-08-25 03:04] LABS: BASOPHILS % (AUTO) 0 % (0-1); EOSINOPHILS # (AUTO) 0.2 X10'3 (0-0.9); EOSINOPHILS % (AUTO) 2.1 % (0-6); HEMATOCRIT 27.4 % (35.0-45.0); HEMOGLOBIN 9.2 g/dl (12.0-16.0); LYMPHOCYTES # (AUTO) 1.1 X10'3 (1.1-4.8); LYMPHOCYTES % (AUTO) 11.4 % (21-51); MEAN CORPUSCULAR HEMOGLOBIN 31.5 PG (27.0-31.0); MEAN CORPUSCULAR HGB CONC 33.5 % (33.0-36.5); MEAN CORPUSCULAR VOLUME 94.1 FL (78-98); MONOCYTES # (AUTO) 0.6 X10'3 (0-0.9); MONOCYTES % (AUTO) 6.6 % (2-12); NEUTROPHILS # (AUTO) 7.9 X10'3 (1.8-7.7); NEUTROPHILS % (AUTO) 79.9 % (42-75); PLATELET COUNT 143 X10'3 (140-440); RED BLOOD COUNT 2.91 X10'6 (4.20-5.60); RED CELL DISTRIBUTION WIDTH 15.2 % (11.5-14.5); WHITE BLOOD COUNT 9.8 X10'3 (4.5-11.0)
[2017-08-25 03:20] LABS: ALANINE AMINOTRANSFERASE 20 U/L (12-78); ALBUMIN 2.3 G/DL (3.4-5.0); ALBUMIN/GLOBULIN RATIO 0.7 (1.1-1.5); ALKALINE PHOSPHATASE 77 IU/L (46-116); ANION GAP 7 (8-16); ASPARTATE AMINO TRANSFERASE 20 U/L (10-37); BILIRUBIN,TOTAL 0.3 MG/DL (0.1-1.0); BLOOD UREA NITROGEN 44 MG/DL (7-18); BUN/CREATININE RATIO 16.5 (6.6-38.0); CALCIUM 8.1 MG/DL (8.5-10.1); CHLORIDE 97 MMOL/L (99-107); CREATININE 2.66 MG/DL (0.40-0.90); GLUCOSE 83 MG/DL (70-104); MAGNESIUM 1.9 MG/DL (1.5-2.4); PHOSPHORUS 4.7 MG/DL (2.3-4.5); POTASSIUM 4.4 MMOL/L (3.5-5.1); SODIUM 132 MMOL/L (135-145); TOTAL PROTEIN 5.8 G/DL (6.4-8.2); eGFR 17 ML/MIN
[2017-08-25 06:00] VITALS: BP 139/58
[2017-08-25] MEDS: pantoprazole 40mg Tablet.DR PO SCH (07:33)
[2017-08-25] MEDS: HYDROcodone/acetaminophen 5mg/325mg tablet PO SCH (07:34)
[2017-08-25] MEDS: docusate sod 100mg capsule PO SCH (07:35)
[2017-08-25] MEDS ORDERED: epoetin 20,000 units/ml inj IV ONE (08:00)
[2017-08-25] MEDS ORDERED: heparin 1,000 units/ml 10ml inj HE ONE ×2 (08:00)
[2017-08-25] MEDS ORDERED: normal saline 1000ml 250 ML IV PRN (08:00)
[2017-08-25] MEDS ORDERED: heparin 1,000unit/ml 10ml vial 10 ML IV ONE (08:00)
[2017-08-25] MEDS: heparin 10,000 units/1 ML INJ IV PRN (10:13)
[2017-08-25 11:00] VITALS: BP 125/65
[2017-08-25 15:00] VITALS: BP 107/59
== END 2017-08-25 17:31 | disposition home or self-care (01) | DRG 280 ==
LOC: ER 07:34 → ED HOLD 12:03 → PCU 3S 14:50
PROVIDERS: ADMIT Internal Medicine Critical Care Medicine; ATTEND Internal Medicine Critical Care Medicine
PROC: 5A1D70Z Performance of Urinary Filtration, Intermittent, Less than 6 Hours Per Day (ICD-10-PCS; 2017-08-23)
PROC: 4A02XM4 Measurement of Cardiac Total Activity, External Approach (ICD-10-PCS; principal; 2017-08-24)
PROC: 3E073KZ Introduction of Other Diagnostic Substance into Coronary Artery, Percutaneous Approach (ICD-10-PCS; 2017-08-24)
PROC: 5A1D70Z Performance of Urinary Filtration, Intermittent, Less than 6 Hours Per Day (ICD-10-PCS; 2017-08-25)
DX: I21.4 Non-ST elevation (NSTEMI) myocardial infarction (principal); N18.6 End stage renal disease; J44.1 Chronic obstructive pulmonary disease with (acute) exacerbation; J96.10 Chronic respiratory failure, unspecified whether with hypoxia or hypercapnia; Z68.1 Body mass index [BMI] 19.9 or less, adult; J81.1 Chronic pulmonary edema; E11.22 Type 2 diabetes mellitus with diabetic chronic kidney disease; E11.51 Type 2 diabetes mellitus with diabetic peripheral angiopathy without gangrene; E11.65 Type 2 diabetes mellitus with hyperglycemia; H91.90 Unspecified hearing loss, unspecified ear; M81.0 Age-related osteoporosis without current pathological fracture; Z87.891 Personal history of nicotine dependence; Z99.2 Dependence on renal dialysis; Z99.81 Dependence on supplemental oxygen; Z89.619 Acquired absence of unspecified leg above knee
CPT/HCPCS: 36415; 71045; 78452; 80053; 82948; 83605; 83735; 83880; 84100; 84484; 85025; 85610; 85730; 86703; 87040; 87070; 87077; 87186; 93005; 93017; 93306; 94640; 94760; 97110; 97161; 97530; A9500; G0257; J0456; J0885; J1644; J1815; J2930; J7030